=== PATIENT | female | born 1990 | race Caucasian/White ===

== ENCOUNTER 2018-09-09 15:07 | Inpatient (IN) | payer OTHER, MEDICAID ==
[~2018-09-09] VITALS: Ht 167.6 cm; Wt 81.7 kg
[2018-09-09] VITALS (10 sets, daily range): BP systolic 90–118; BP diastolic 40–66
--- NOTE | ~2018-09-09 | EEG ---
[address] [address] EEG STUDY REPORT Name: CASIMIRO HAYES Room: [address] IN M.R.#: [id number] Admission: 09/09/18 Attend Phys: Ji Burns Discharge: Date of : 89 Report #: [id number] THIS REPORT FOR: //name// CC: CASSIE physician/PCP Bandar Orellana DATE OF SERVICE: 09/10/2018 This patient's EEG was done by placing the electrodes by standard 10-20 system of electrode placement. Both referential and sequential montages were used for recording. The background activity in this patient's EEG is about 11 Hz and 40 microvolt. The patient became drowsy and that is associated with bilateral slowing and vertex sharp waves. The patient had two episodes, which look like seizures arising from the posterior temporal area. They appeared to be seizure. Consideration was given that may be artifact, but it looks like seizure activity. IMPRESSION: The patient's EEG appeared to be showing 2 episodes of seizure activity. Consideration was given that may be artifact, but they look seizures on the EEG we have. Thank you very much for this referral. By: 1400 [id number] Murcia MD /nt
--- NOTE | ~2018-09-09 | EEG ---
[address] [address] EEG STUDY REPORT Name: CASIMIRO HAYES Room: [address] IN M.R.#: [id number] Admission: 09/09/18 Attend Phys: Ji Burns Discharge: Date of : 89 Report #: [id number] THIS REPORT FOR: //name// CC: CASSIE physician/PCP Bandar Orellana DATE OF SERVICE: 09/09/2018 This patient is being evaluated for the possibility of seizure. EEG was done by placing the electrode by standard 10-20 system of electrode placement. Both referential and sequential montages were used for recording. Background activity in this patient's EEG is about 11 Hz and 40 microvolt. It is a symmetrical activity. The patient became drowsy and that is associated with bilateral slowing. The patient's EEG demonstrates what appeared to be episode of seizure activity arising from the posterior temporal area. Photic stimulation is unremarkable. IMPRESSION: This is an abnormal EEG demonstrating a seizure activity arising from bilateral temporal area. Clinical correlation is recommended. By: 2139 2204Pabel Murcia MD /nt
--- NOTE | ~2018-09-09 | EEG ---
[address] [address] EEG STUDY REPORT Name: CASIMIRO HAYES Room: [address] IN M.R.#: [id number] Admission: 09/09/18 Attend Phys: Ji Burns Discharge: Date of : 89 Report #: [id number] THIS REPORT FOR: //name// CC: CASSIE physician/PCP Bandar Orellana DATE OF SERVICE: 09/12/2018 This patient is being evaluated for seizure. EEG was done by placing the electrode by standard 10-20 system of electrode placement. Both referential and sequential montages were used for recording. Background activity in this patient's EEG is about 10-11 Hz and 30-40 microvolt. The patient became drowsy and that is also associated with bilateral slowing and vertex sharp waves. The patient still demonstrate what looks like sharper activity from the temporal area. It builds up and then the patient's old EEG get masked by muscle artifact. There is no prominent postictal slowing, but the episodes still look seizure activity as it builds up and the heart rate goes up at the same time. IMPRESSION: This patient appeared to be showing sharper activity arising from the temporal area. Although there is no clearly defined postictal slowing, but the activities still look epileptiform other than artifact. I have discussed all of it with the patient in detail. She indicated that she does not plan to have any more children. She indicates that she will not be able to afford medications, especially Vimpat. Therefore, I am going to try a combination of Dilantin and Keppra and see if that helps. She does become tachycardic, but I had asked them to give 500 mg of Dilantin and see if she becomes any tachycardic, otherwise I will give another 500 mg either p.o. or IV. I do not plan to continue Vimpat because she would not do that at home, and will take some time to build up. All of it was discussed with the patient. I discussed all the alternatives also and the patient wants to follow this plan. By: 1818 12Ramon Murcia MD /nt
--- NOTE | ~2018-09-09 | EEG ---
[facility] [address] [place] [address] EEG STUDY REPORT Name: CASIMIRO HAYES Room: [address] IN M.R.#: [id number] Admission: 09/09/18 Attend Phys: Ji Burns Discharge: Date of : 89 Report #: [id number] THIS REPORT FOR: //name// CC: CASSIE physician/PCP Bandar Orellana DATE OF SERVICE: 09/15/2018 This patient had history of multiple spells. EEG is being done to evaluate the possibility of seizure versus pseudoseizure. The situation has not been clear and she has been accepted at [facility], but there is no bed available, so I repeated the EEG for comparison. EEG was done by placing the electrode by standard 10-20 system of electrode placement. Both referential and sequential montages were used for recording. Background activity is reasonably well formed at about 10 Hz and 40 microvolt. It is somewhat of a higher amplitude on the right side as compared to the left side. That is a normal variation. The patient became drowsy, that is associated with bilateral slowing. The patient had another spell. During this spell, the patient's EEG became abnormal in the temporal area. The finding is similar to the prior finding. We looked at this EEG closely and I cannot be certain that this is not some kind of artifact. Then, the patient's EEG is masked by a full muscle artifact. There is no marked postictal slowing. IMPRESSION: It is very difficult to form in this patient both from history and from the EEG. The patient really needs a video monitored prolonged EEG. The patient does demonstrate what looks like seizure activity from the temporal area, but that can very well be artifact. She has no well-defined postictal slowing and the muscle artifact can cause similar finding, although it is unusual to have it in a few montages only. The more I looked at it, the more the possibility of artifact causing the EEG need to be considered. I discussed that aspect with the patient and I told her the diagnosis is not clear. I am trying to taper of her seizure medications and this patient needs a video-monitored EEG and evaluation by epileptologist. Also is clinically relevant, the patient indicates that she had spell, which was initially diagnosed with syncope, then for the anxiety spell and she tells me she has not fallen because of that and has not hurt herself and the history continued to be poor. It is very desirable to transfer this patient to [facility] and get a video-monitored EEG and also get an opinion from an epileptologist. In the meantime, I will continue to taper off her Keppra and presently leave her on Dilantin, and depending upon their evaluation, we may have to [place] [address] EEG STUDY REPORT Name: CASIMIRO HAYES Room: [address] IN M.R.#: [id number] Admission: 09/09/18 Attend Phys: Ji Burns Discharge: Date of : 89 Report #: [id number] I have talked to the nurses and asked them to transfer as soon as the call from [facility] comes and a bed is available. By: 1403 1415Ramon Murcia MD /nt
--- NOTE | ~2018-09-09 | CON ---
[facility] [address] [place] [address] CONSULTATION Name: CASIMIRO HAYES Room: [address] ADM IN M.R.#: [id number] Admission: 09/09/18 Attend Phys: Ji Burns Discharge: Date of : 89 Report #: [id number] THIS REPORT FOR: //name// CC: CASSIE physician/PCP Bandar Orellana DATE OF SERVICE: 09/10/2018 HISTORY OF PRESENT ILLNESS: This is a 27-year-old female patient who was admitted with recurrent seizure. The history is poorly defined. She indicated that she had these spells for a long time. She has been to some physicians, but she has been pretty evasive about details of that history. Sometime, she said that was associated with anxiety. She indicates she did not have finances to follow up medically, and she never did. It does not look like that the patient was ever started on any anti-seizure medications. REVIEW OF SYSTEMS: Indicates that she does have a history of head injury and falling on a concrete. She does not believe she is under too much stress. She is not running any temperature to suggest any encephalitis. Drug screen was negative. A 14-point review of system was otherwise unremarkable. PAST MEDICAL HISTORY: Positive for these spells, which are present for long time. SOCIAL HISTORY: She does not drink alcohol on a regular basis and she does not use drugs. Her drug screen was negative. PHYSICAL EXAMINATION: GENERAL: She was alert and responsive. She can follow simple commands. She was hungry when I saw and was worried about hypoglycemia. NEUROLOGICAL: Otherwise nonfocal. She does not have any meningeal sign. CARDIAC: Examination was unremarkable. No respiratory difficulty was noticed. Her blood pressure was 90/50. She had no side effects from Keppra and in fact during the night, she did okay and then she had two more spells. IMPRESSION: It would appear this patient's episodes are seizure because of the patient's EEG. I considered the possibility that this may be all artifact, but I repeated the EEG and same thing appear and it looks more like seizure than artifact. I discussed the situation with her. I gave her Keppra, but she still had seizures, so I started Vimpat at the same time. I gave her the test dose and if she does not have any side effect, I will give her dose of Vimpat [place] [address] CONSULTATION Name: CASIMIRO HAYES Room: [address] IN [facility].#: [id number] Admission: 09/09/18 Attend Phys: Ji Burns Discharge: Date of : 89 Report #: [id number] I discussed with the patient that ideally she should be in a bigger center and have a video monitored EEG, but the problem is that she has no insurance and we will have difficult time finding somebody to accept her. I will continue her seizure medication. I would like to keep her in ICU and if she has more seizure, I will give her a bigger dose of Vimpat along with Keppra. Presently, I will continue Keppra at 1000 mg b.i.d. The patient was discussed with the Emergency Room physician yesterday. The patient was discussed with the nurses today as well as last night. Time spent about 50 minutes, majority of that counseling and coordinating and reviewing her imaging study. I did get an MRI done, but MRI was unremarkable. Presently, I do not think we need to proceed with spinal tap, but we will keep that option in mind. By: 1543 2220Ramon Murcia MD /nt
[2018-09-09 15:42] LABS: ABSOLUTE EOSINOPHILS 0.2 thou/uL (0.0-0.7); ABSOLUTE LYMPHOCYTES 2.4 thou/uL (0.8-5.3); ABSOLUTE MONOCYTES 0.5 thou/uL (0.0-1.2); ABSOLUTE NEUTROPHILS 4.9 thou/uL (1.6-8.1); BASOPHILS 0.4 %; HEMATOCRIT 41.2 % (37.0-47.0); HEMOGLOBIN 13.6 gm/dL (12.0-15.0); LYMPHOCYTES 29.9 %; MCH 29.3 pg (26.0-34.0); MCV 88.8 fL (80.0-100.0); MONOCYTES 6.1 %; MPV 8.2 fl. (7.2-11.1); NUCLEATED RBCS 0 /100WBC; PLATELET COUNT* 228 thou/uL (150-400); POLYS 61.6 %; RBC 4.64 mil/uL (4.20-5.00); RDW-CV 13.6 % (10.5-14.5)
[2018-09-09 15:53] LABS: CALCIUM 9.2 mg/dL (8.5-10.1); CREATININE 0.9 mg/dL (0.6-1.3)
[2018-09-09 15:57] LABS: ALBUMIN 3.8 g/dL (3.4-5.0); TOTAL BILIRUBIN 0.2 mg/dL (<0.1-1.0); TOTAL PROTEIN 7.9 g/dL (6.4-8.2)
--- NOTE | 2018-09-09 16:20 | NUR ---
LATE ENTRY FOR 161: PT SEIZING IN BED AGAIN, VERBAL ORDER 1MG ATIVAN. PT SEIZURE LASTS APPROX 1 MINUTE.
[2018-09-09 17:12] LABS: URINE BILIRUBIN NEGATIVE (Negative); URINE BLOOD NEGATIVE (Negative); URINE CLARITY CLEAR; URINE COLOR YELLOW; URINE GLUCOSE-RANDOM NEGATIVE (Negative); URINE KETONES NEGATIVE (Negative); URINE LEUKOCYTES-REFLEX NEGATIVE (Negative); URINE NITRITE-REFLEX NEGATIVE (Negative); URINE PROTEIN NEGATIVE (Negative); URINE SPECIFIC GRAVITY >= 1.030 (1.005-1.030); URINE UROBILINOGEN 0.2 E.U./dl (0.2-1.0)
[2018-09-09 17:25] LABS: AMP/METHAMP Negative (Negative); BARBITURATES Negative (Negative); BENZODIAZEPINES Negative (Negative); COCAINE Negative (Negative); METHADONE Negative (Negative); OPIATES Negative (Negative); PCP Negative (Negative); THC Negative (Negative)
--- NOTE | 2018-09-09 17:51 | NUR ---
PT CONTINUES TO HAVE SEIZURE ACTIVITY. EEG PERFORMED AT BEDSIDE.
--- NOTE | 2018-09-09 18:28 | NUR ---
PT HAD 45 SECOND SEIZURE ACTIVITY.
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
[2018-09-10] VITALS (25 sets, daily range): BP systolic 90–119; BP diastolic 27–66
--- NOTE | 2018-09-10 05:07 | NUR ---
PT PROGRESSING TOWARD GOALS. NO EPISODES OF SEIZURE ACTIVITY SINCE ADMIT TO ICU. PT'S BLOOD PRESSURE WITHIN NORMAL LIMITS DURING SHIFT. PT IN SINUS RHYTHM WHILE SLEEPING. HEART RATE > 100 WHEN MOVING IN BED, PT AFEBRILE. PT RECIEVING IV KEPPRA FOR TREATMENT OF SEIZURES. NO ACUTE CHANGES DURING SHIFT. WILL CONTINUE PLAN OF CARE.
--- NOTE | 2018-09-10 09:48 | NUR ---
PT A/O. TELE TRACKING SR AND ALL VSS ON ROOM AIR. DENIES CP, SOA. PT DID HAVE SEVERAL EPISODES OF SZ LIKE ACTIVITY THIS AM (LASTING APPROX 30 SECONDS). HEART RATE HIGH 160'S DURING THESE EPISODES, RESPIRATORY STATUS REMAINED UNCHANGED. PT BRIEFLY POSTICTAL FOLLOWING EPISODES. MD AT BEDSIDE. SZ PERCAUTIONS IN PLACE. EDUCATED ON SAFETY AND PLAN OF CARE. PLEASE SEE ASSESSMENT FOR ADDITIONAL INFORMATION. WILL CONT TO MONITOR
[2018-09-11] VITALS (10 sets, daily range): BP systolic 95–128; BP diastolic 44–78
[2018-09-11 03:49] LABS: ABSOLUTE EOSINOPHILS 0.2 thou/uL (0.0-0.7); ABSOLUTE LYMPHOCYTES 2.9 thou/uL (0.8-5.3); ABSOLUTE MONOCYTES 0.6 thou/uL (0.0-1.2); ABSOLUTE NEUTROPHILS 3.3 thou/uL (1.6-8.1); BASOPHILS 0.5 %; EOSINOPHILS 2.7 %; HEMATOCRIT 37.7 % (37.0-47.0); HEMOGLOBIN 12.1 gm/dL (12.0-15.0); LYMPHOCYTES 41.7 %; MCH 28.7 pg (26.0-34.0); MCV 89.7 fL (80.0-100.0); MPV 8.4 fl. (7.2-11.1); NUCLEATED RBCS 0 /100WBC; PLATELET COUNT* 189 thou/uL (150-400); POLYS 47.1 %; RDW-CV 13.6 % (10.5-14.5); WBC 7.1 thou/uL (4.0-11.0)
[2018-09-11 04:00] LABS: CALCIUM 7.9 mg/dL (8.5-10.1); CREATININE 0.8 mg/dL (0.6-1.3); POTASSIUM 4.3 mmol/L (3.5-5.1)
--- NOTE | 2018-09-11 05:49 | NUR ---
NO SEIZURE ACTIVITY DURING SHIFT. PT PLEASANT AND COOPERATIVE. PT SHOWS NO NEURO DEFICITS OR DIFFICULTY WITH COORDINATION. MONITOR SHOWS SINUS MYESHA WITH HEART RATE AT 48 TO 54. NO ACUTE CHANGES DURING SHIFT, WILL CONTINUE TO MONITOR.
--- NOTE | 2018-09-11 09:15 | NUR ---
PT HAD A SEIZURE LIKE ACTIVITY LASTING 45-50 SECONDS, SAID SHE HAD AN AURA BEFORE THE EVENT, HR UPTO 160s. VSS STABLE AFTER THE EVENT. NEURO NOTIFIED. PLAN TO DO AN EEG TOMORROW. TOLERATED HER MEALS. HAD A BM.
--- NOTE | 2018-09-11 16:20 | NUR ---
PT ARRIVED TO UNIT AT APPROX 1610, THIS NURSE AGREES WITH PREVIOUS ICU NURSES ASSESSMENT. PT HAD NO SEIZURE LIKE ACTIVITY THIS SHIFT, NO NEURO DEFICITS. SEIZURE PRECAUTIONS IN PLACE, HOURLY ROUNDING COMPLETED.
[2018-09-12] VITALS (14 sets, daily range): BP systolic 90–133; BP diastolic 40–74
--- NOTE | 2018-09-12 05:18 | NUR ---
ASSUMED CARE OF PT AT 1900. PT IS ALERT AND ORIENTED. VSS. PERRLA. NO COMPLAINTS OF PAIN. STEADY GAIT. PT IS IN SINUS RYTHM ON THE TELEMETRY. PT IS RESTING COMFORTABLY IN BED. RESPIRATIONS ARE EVEN AND NONLABORED. WILL CONTINUE TO MONITOR PT.
--- NOTE | 2018-09-12 09:56 | NUR ---
Pt is unable to be assessed at this time, will f/u later
--- NOTE | 2018-09-12 10:36 | NUR ---
ASSUMED CARE OF PT AT 0730. PT RESTING IN BED. VISITOR AT BEDSIDE. PT A&0X4, DENIES ANY PAIN OR SHORTNESS OF BREATH AT THIS TIME. PT TRACING SR/ST ON THE SOLAR WATER HEATER INSTALLER. ON RA SAT 96%. VSS. PT UP AD PERRY IN ROOM. NEURO CONSULT IN PLACE. AT APPROXIMATELY 0930- PT VISITOR CAME OUT STATING PT HAD SEIZURE- THIS RN INTO ROOM- PT NOTED TO BE STIFF AND RIGID-EYES CLOSED. UNABLE TO FOLLOW COMMANDS. IV ATIVAN GIVEN PER EMAR WITH COMPLETE RELIEF. PT HAD 3-4 SEIZURES AFTER INITIAL SEZIURE THIS AM PER VISITOR AT BEDSIDE. PT ABLE TO FOLLOW COMMANDS WHEN NURSING ARRIVED TO ROOM EACH TIME. DR Palma HERE TO SEE PT AND ORDERS RECEIVED TO TRANSFER TO ICU. REPORT CALLED TO ENRIQUE MADRID. AM ASSESSMENT CHARTED. MEDICATIONS PER MAY. PT REPOSITIONS SELF. HOURLY ROUNDING OBSREVED. BED IN LOW POSITION. BED ALARM IN PLACE. SEIZURE PRECAUTIONS IN PLACE. CALL LIGHT WITHIN REACH. WILL CONTINUE PLAN OF CARE.
[2018-09-12 11:54] LABS: HEMATOCRIT 40.1 % (37.0-47.0); HEMOGLOBIN 13.3 gm/dL (12.0-15.0); MCH 29.2 pg (26.0-34.0); MCHC 33.1 g/dL (28.0-37.0); MCV 88.2 fL (80.0-100.0); MPV 8.5 fl. (7.2-11.1); RBC 4.54 mil/uL (4.20-5.00); RDW-CV 13.7 % (10.5-14.5); WBC 8.8 thou/uL (4.0-11.0)
[2018-09-12 11:59] LABS: CALCIUM 9.2 mg/dL (8.5-10.1); CREATININE 0.8 mg/dL (0.6-1.3); POTASSIUM 3.9 mmol/L (3.5-5.1)
--- NOTE | 2018-09-12 13:34 | NUR ---
GUARD SERGEANT INFORMED OF THE NEED TO INITIATE TRANSFER TO [facility]. SENDING PHYSICIAN: DR MINA. REASON FOR TRANSFER: EEG, AND EPILEPSY SPECIALIST. TYPE OF BED: ICU. GUARD SERGEANT SPOKE TO ENRIQUE STONE WITH [facility] TRANSFER TEAM TO INITIATE TRANSFER OF THE PATIENT. D/C ROLL ON WORKER FAXED TRANSFER TEAM PATIENT'S CLINICAL INFO AND IMAGING. D/C ROLL ON WORKER AWAIING RETURN CALL FROM TRANSFER TEAM TO INFORM OF ABILITY TO ACCEPT THE PATIENT. CM WILL REMAIN AVAILABLE TO ASSIST AND FOLLOW NEEDED.
--- NOTE | 2018-09-12 13:37 | EKG ---
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 : 1990 Requested By: Gi Leos Order Number: [id number] MD: Clay Meier Measurements Intervals [place] Rate: 101 P: 138 UT: 165 QRS: -4 QRSD: 95 T: 57 QT: 334 QTc: 433 Interpretive Statements Sinus or ectopic atrial tachycardia Left atrial enlargement Borderline Q waves in lateral leads Probable lateral infarct, age indeterminate No previous ECG available for comparison Electronically Signed On 09-12-2018 13:36:52 CDT by Clay Meier [email or web address] <ELECTRONICALLY SIGNED> By: Clay Meier MD, [facility] 09/12/18 1336 1515 1515 Clay Meier MD, [facility] /EPI
--- NOTE | 2018-09-12 19:04 | NUR ---
PATIENT RECEIVED AT 1200, ALERT AND ORIENTED X4. VSS. HAD A SEIZURE LIKE ACTIVITY AT 1430 LASTING FOR A MINUTE AND BECOMES UNRESPONSIVE. VSS THRUOUT THE WHOLE EVENT. VOIIDING PER BSC. TOLERATED HER MEALS.
[2018-09-13] VITALS (19 sets, daily range): BP systolic 82–126; BP diastolic 34–66
[2018-09-13 04:31] LABS: HEMATOCRIT 40.6 % (37.0-47.0); HEMOGLOBIN 13.1 gm/dL (12.0-15.0); MCH 28.8 pg (26.0-34.0); MCHC 32.3 g/dL (28.0-37.0); MCV 89.1 fL (80.0-100.0); MPV 8.6 fl. (7.2-11.1); RBC 4.55 mil/uL (4.20-5.00); RDW-CV 13.6 % (10.5-14.5); WBC 8.5 thou/uL (4.0-11.0)
[2018-09-13 04:42] LABS: CREATININE 0.9 mg/dL (0.6-1.3); MAGNESIUM 1.9 mg/dL (1.8-2.4); POTASSIUM 4.1 mmol/L (3.5-5.1)
--- NOTE | 2018-09-13 07:48 | NUR ---
Pt had 3 seizure-like episodes: @0215, 0220, and 0234, approx 20 seconds in length each. Pt's HR elevated with artifact per monitor, which prompted RN to check on pt; pt shivering the first time, stating that she was cold. Then pt stiffened up and clenched R hand into fist. Warm blankets placed on pt, and initially not responding to verbal and physical stimuli. Then pt states she is hot, so blankets removed, and pt stiffened up again with R fist clenched. Then pt again was not responding, and appeared to be sleeping deeply. Then for third episode, pt again with elevated HR and artifact per monitor. Arrived to pt's room to find pt stiffened with R fist clenched. Then at 0250 pt used call button asking to use the BSC. Pt alert and fully oriented at this time, states she has no recollection of previous episodes (she had asked for her BG to be checked in the middle of these episodes, but she does not recall that either). Pt up with SBA to BSC, and does not appear post-ictal. No other episodes noted for remainder of shift. VSS. Will continue to monitor.
--- NOTE | 2018-09-13 15:50 | NUR ---
CHART REVIEWED, SPOKE WITH PATIENT. PT SAID SHE LIVES AT HOME WITH A FRIEND. SHE GAVE ME HER MOTHER AND FATHER'S PHONE NUMBERS FOR CONTACT INFORMATION. PT CONFIRMS SHE HAS NO HEALTH INSURANCE, SAID SHE TALKED WITH SOMEONE FROM [place] ALREADY ABOUT POSSIBLE MEDICAID (PT CURRENTLY HAS MEDICAID COVERAGE FOR WOMEN'S HEALTH SERVICES ONLY). PT SAID SHE DOES NOT HAVE A PCP AND WAS NOT TAKING ANY SEIZURE MEDS PRIOR TO ADMISSION, SHE SAID HER LAST SEIZURE HAD BEEN ABOUT 5 YEARS AGO. DISCUSSED ROLE OF CASE MGT, WILL CONTINUE TO FOLLOW.
--- NOTE | 2018-09-13 19:29 | NUR ---
PT ALERT AND ORIENTED X4. VSS. NO SEIZURES DURING THE WHOLE SHIFT. DENIES ANY PAIN. TOLERATED HER MEALS. VOIDING PER BSC. SEIZURE PRECAUTIONS IN PLACE.
[2018-09-14 03:03] VITALS: BP 132/79
--- NOTE | 2018-09-14 03:06 | NUR ---
PT WENT TO THE BATHROOM WITH DINING SERVICE INSPECTOR AND HAD A MILD SHAKING WITH HER BODY STIFFENED. PT WAS ABLE TO WALK BACK TO THE BED. VITALS STABLE. REFUSED TO TALK OR TO ANSWER THE QUESTION. WILL CONTINUE TO MONITOR.
--- NOTE | 2018-09-14 06:09 | NUR ---
PT TRANSFERED FROM ICU BY WHEELCHAIR. ALERT AND ORIENTED. VITALS STABLE RA. MEDS GIVEN ORDERED. PT DENIED PAIN, SLEPT THROUGHT THE NIGHT. HOURLY ROUNDING COMPLETED. WILL CONTINUE TO MONITOR.
[2018-09-14 08:00] VITALS: BP 107/71
--- NOTE | 2018-09-14 11:41 | NUR ---
CONTINUING TO TRY TO WORK ON TRSF FOR EPILEPTOLOGIST AND VIDEO EEG. CALLED AND FAXED REF TO [facility]. SPOKE WITH LUIS ANTONIO, GAVE HER DR MINA'S INFO TO CONTACT.
[2018-09-14 16:33] VITALS: BP 121/66
--- NOTE | 2018-09-14 17:16 | NUR ---
Pt up in room with assist. Pt has had no evidence of seizure activity today. Pt tolerating po well.Possibly transfer to [facility] when bed available
[2018-09-14 22:20] VITALS: BP 133/79
[2018-09-15 02:50] VITALS: BP 110/69
[2018-09-15 05:04] LABS: HEMATOCRIT 42.3 % (37.0-47.0); HEMOGLOBIN 13.4 gm/dL (12.0-15.0); MCH 28.4 pg (26.0-34.0); MCHC 31.8 g/dL (28.0-37.0); MCV 89.5 fL (80.0-100.0); MPV 8.3 fl. (7.2-11.1); RBC 4.73 mil/uL (4.20-5.00); RDW-CV 13.7 % (10.5-14.5); WBC 8.8 thou/uL (4.0-11.0)
[2018-09-15 05:47] LABS: ALBUMIN 3.5 g/dL (3.4-5.0); CALCIUM 9.2 mg/dL (8.5-10.1); CREATININE 0.9 mg/dL (0.6-1.3); POTASSIUM 4.4 mmol/L (3.5-5.1); TOTAL BILIRUBIN 0.3 mg/dL (<0.1-1.0); TOTAL PROTEIN 7.6 g/dL (6.4-8.2)
[2018-09-15 06:00] VITALS: BP 119/55
--- NOTE | 2018-09-15 06:16 | NUR ---
PATIENT HAS SLEPT WELL THROUGHOUT THE NIGHT. VSS ON RA. NO C/O PAIN. NO SEIZURE ACTIVITY DURING SHIFT. PATIENT IS UP WITH SBA TO THE BATHROOM. PATIENT REMAINS ON SEIZURE PRECAUTIONS. IV IN RIGHT HAND-SL. IV IN LEFT HAND-SL. MEDICATIONS GIVEN ORDERED AND CHARTED. PATIENT INSTRUCTED TO USE CALL LIGHT WHEN NEEDING ASSISTANCE. HOURLY ROUNDS MADE. WILL CONTINUE WITH PLAN OF CARE AND NURSING TO MONITOR.
[2018-09-15 08:00] VITALS: BP 121/75
--- NOTE | 2018-09-15 09:30 | NUR ---
WAS NOTIFIED BY RETAIL LOSS PREVENTION OFFICER THAT PT HAD APPARENT SEIZURE ACTIVITY DURING EXAM. PT DOES NOT APPEAR POST TICTAL. WILL CONTINUE TO MONITOR
--- NOTE | 2018-09-15 10:40 | NUR ---
CONTINUE TO FOLLOW, [facility] CALLED NURSING UNIT THIS AM AND ARE STILL WAITING ON BED AVAILABILITY. PT AND FRIEND UPDATED
[2018-09-15] MEDS ORDERED: KEPPRA 500 MG500 M1 PO (15:58)
[2018-09-15] MEDS ORDERED: DILANTIN100 MG PO (15:58)
--- NOTE | 2018-09-15 16:02 | NUR ---
BED ASSIGNMENT RECEIVED AT [facility]. NEURO NOTIFIED
[2018-09-15 16:30] VITALS: BP 91/72
== END 2018-09-15 16:30 | disposition short-term general hospital (02) | DRG 101 ==
LOC: M.ERS 15:07 → M.TBA-ER 18:55 → M.2W 18:55 → M.ICU 19:40 → M.2W 09-11 16:08 → M.ICU 09-12 12:46 → M.ORTHSURG 09-13 21:00
PROVIDERS: Internal Medicine; Personal Emergency Response Attendant; Psychiatry & Neurology Neuromuscular Medicine; ADMIT Internal Medicine
DX: G40.911 Epilepsy, unspecified, intractable, with status epilepticus (principal); Z79.899 Other long term (current) drug therapy